=== PATIENT | female | born 1965 | race Asian ===

== ENCOUNTER 2021-03-24 17:40 | Inpatient (IN) | payer MEDICAID, SELFPAY ==
[~2021-03-24] VITALS: Ht 167.6 cm; Wt 55.3 kg
[2021-03-24 17:55] VITALS: BP_SYST 112
--- NOTE | 2021-03-24 18:00 | NUR ---
PT PLACED IN WAITING ROOM FOR BED AVAILABLILITY IN MAIN ED
--- NOTE | 2021-03-24 18:13 | NUR ---
PT BIB SON C/O EPIGASTRIC ABD PAIN X 1 WEEK WAS TOLD BY URGENT CARE TO GET X-RAY. TENDER TO TOUCH. TOOK SON'S AZITHROMYCIN AT HOME MADE WORSE. PT DENIES N/V/D. AMBULATORY, AAOX4, V/S STABLE
[2021-03-24 18:45] LABS: BILIRUBIN,URINE NEGATIVE (NEGATIVE); BLOOD, URINE NEGATIVE (NEGATIVE); CLARITY/URINE CLEAR (CLEAR); COLOR,URINE YELLOW (YELLOW); GLUCOSE,URINE NEGATIVE (NEGATIVE); KETONES,URINE NEGATIVE (NEGATIVE); LEUKOCYTE ESTERASE ,URINE TRACE (NEGATIVE); NITRITE, URINE NEGATIVE (NEGATIVE); PROTEIN URINE NEGATIVE (NEGATIVE); UROBILINOGEN,URINE 0.2 (0.2-1.0)
[2021-03-24 19:27] LABS: BACTERIA,URINE RARE /HPF (None Seen); RBC,URINE 0-3 /HPF (0-3); WBC,URINE 0-3 /HPF (0-3)
[2021-03-24 19:28] LABS: MUCUS,URINE None Seen /LPF (None Seen)
[2021-03-24 23:13] LABS: BASOPHILS % (AUTO) 1.2 % (0.0-2.0); EOSINOPHILS % (AUTO) 0.6 % (0.0-4.0); LYMPHOCYTES # (AUTO) 0.2 K/uL (1.0-5.5); MEAN CORPUSCULAR HEMOGLOBIN 68 pg (27-31); MEAN CORPUSCULAR HGB CONC 70 % (32-36); MEAN CORPUSCULAR VOLUME 97 fL (79.0-98.0); MONOCYTES # (AUTO) 0.2 K/uL (0.0-1.0); MONOCYTES % (AUTO) 8.6 % (1.7-9.3); NEUTROPHILS # (AUTO) 1.5 K/uL (1.8-7.7); NEUTROPHILS % (AUTO) 79.6 % (40.0-70.0); RED CELL DISTRIBUTION WIDTH 12.5 % (9.0-15.0)
[2021-03-24 23:17] LABS: ANION GAP 4 (5-15); CALCIUM 9.3 mg/dL (8.4-11.0); CHLORIDE 105 mmol/L (98-107); CREATININE 0.65 mg/dL (0.55-1.30); GLUCOSE 97 mg/dL (70-99); POTASSIUM 4.3 mmol/L (3.5-5.1); SODIUM SERUM 140 mmol/L (136-145); UREA NITROGEN, BLOOD 14 mg/dL (8-21)
[2021-03-24 23:25] LABS: ALANINE AMINOTRANSFERASE 21 U/L (12-78); ALBUMIN 3.9 g/dL (3.4-4.8); ASPARTATE AMINOTRANSFERASE 19 U/L (10-37); LIPASE 93 U/L (73-393); TOTAL BILIRUBIN 0.4 mg/dL (0.0-1.0)
--- NOTE | 2021-03-24 23:36 | NUR ---
DR. METCALF AT BEDSIDE FOR EVALUATION.
[2021-03-24] MEDS ORDERED: MORPHINE 2 MG/ML INJ. SYRINGE IVP ONE (23:45)
[2021-03-24] MEDS ORDERED: FAMOTIDINE PF 20 MG/2 ML VIAL IVP ONE (23:45)
[2021-03-24 23:46] LABS: GFR AFRICAN AMERICAN 121 mL/min (>90)
--- NOTE | 2021-03-24 23:56 | NUR ---
# 20 gauge angiocath placed to RIGHT AC Use of asceptic technique. Opsite placed over site. Blood return noted. Flushed with 10 cc of normal saline. No evidence of infiltration noted. Patient tolerated well.
[2021-03-25 00:07] LABS: RED BLOOD CELL COUNT(AUTO) 0.57 MIL/uL (4.2-6.2); WHITE BLOOD COUNT (AUTO) 1.9 K/uL (4.8-10.8)
[2021-03-25 00:08] LABS: HEMATOCRIT 5.5 % (36-48); HEMOGLOBIN 3.9 g/dL (12.0-16.0)
[2021-03-25 00:09] LABS: PLATELET COUNT (AUTO) 39 K/uL (130-430)
--- NOTE | 2021-03-25 02:12 | NUR ---
DR. METCALF AT BEDSIDE FOR RECTAL EXAM. HEMOCULT NEGATIVE.
--- NOTE | 2021-03-25 02:30 | NUR ---
COVID SWAB COLLECTED AND SENT TO LAB.
[2021-03-25] MEDS ORDERED: FERR236T3 PO (02:35)
[2021-03-25] MEDS ORDERED: MULT-1089 PO (02:35)
--- NOTE | 2021-03-25 02:35 | NUR ---
Medication reconciliation completed with information provided by SON. Any prior medication reconciliation on file was reviewed and corrected.
--- NOTE | 2021-03-25 03:24 | NUR ---
PENDING INSURANCE CONFIRMATION FOR ADMISSION. SON AT BEDSIDE. PT RESTING COMFORTABLY. VSS.
--- NOTE | 2021-03-25 05:00 | NUR ---
Consent signed per PATIENT agreeing to administration of blood. Blood has been type and crossmatched. Blood sent from blood bank. Information on unit of blood checked against patient wristband at bedside by two nurses. All information matches. Patient or responsible green party informed of potential complications associated with blood transfusion. Informed of possible transfusion reaction symptoms. Aware of need to notify nurse at once of itching, shortness of breath, flushing, feeling of impending doom, or other symptoms not previously present. Vital signs taken within 5 minutes prior to initiation of transfusion. RN will remain with patient for first 15 minutes of transfusion at which time vital signs will be re-assessed.
--- NOTE | 2021-03-25 05:17 | NUR ---
first 15 minutes of blood transfusion complete. pt tolerated well. no adverse effects noted. vss. Son at bedside.
--- NOTE | 2021-03-25 06:49 | NUR ---
blood transfusion completed. pt tolerated well. no adverse side effectes noted at this time. vss.
--- NOTE | 2021-03-25 07:14 | NUR ---
2ND BLOOD TRANSFUSION STARTED. Blood sent from blood bank. Information on unit of blood checked against patient wristband at bedside by two nurses. All information matches. Patient or responsible libertarian informed of potential complications associated with blood transfusion. Informed of possible transfusion reaction symptoms. Aware of need to notify nurse at once of itching, shortness of breath, flushing, feeling of impending doom, or other symptoms not previously present. Vital signs taken within 5 minutes prior to initiation of transfusion. RN will remain with patient for first 15 minutes of transfusion at which time vital signs will be re-assessed.
--- NOTE | 2021-03-25 07:21 | NUR ---
REPORT GIVEN TO FELIPE HAGER TO ASSUME ALL CARE OF PATIENT.
--- NOTE | 2021-03-25 07:37 | NUR ---
2ND UNIT PRBC INFUSING WITHOUT INCIDENT, GCS 15, DISTAL PULSES PALPAB[place], LUNGS CTA. SON AT [facility]
--- NOTE | 2021-03-25 08:58 | NUR ---
PRBC #2 REMAINS INFUSING WITHOUT INCIDENT. PT DENIES ANY COMPLAINTS
--- NOTE | 2021-03-25 10:30 | NUR ---
2ND UNIT OF PRBS INFUSED 300ML. SR ON MONITOR VSS UP OOB AMBULATED WITH STEADY GAIT TO BATHROOM. VOIVES NO COMPLAINTS
[2021-03-25 11:51] LABS: BASOPHILS % (AUTO) 0.4 % (0.0-2.0); EOSINOPHILS % (AUTO) 0.7 % (0.0-4.0); HEMOGLOBIN 14.1 g/dL (12.0-16.0); LYMPHOCYTES # (AUTO) 1.1 K/uL (1.0-5.5); MEAN CORPUSCULAR HEMOGLOBIN 32 pg (27-31); MEAN CORPUSCULAR HGB CONC 34 % (32-36); MEAN CORPUSCULAR VOLUME 96 fL (79.0-98.0); MONOCYTES # (AUTO) 0.7 K/uL (0.0-1.0); MONOCYTES % (AUTO) 10.9 % (1.7-9.3); NEUTROPHILS # (AUTO) 4.4 K/uL (1.8-7.7); PLATELET COUNT (AUTO) 226 K/uL (130-430); RED BLOOD CELL COUNT(AUTO) 4.39 MIL/uL (4.2-6.2); RED CELL DISTRIBUTION WIDTH 13.5 % (9.0-15.0); WHITE BLOOD COUNT (AUTO) 6.3 K/uL (4.8-10.8)
[2021-03-25] MEDS ORDERED: HYDROcodone/ACETAMIN 5-325 MG TAB (NORCO/ VICODIN) PO PRN (13:30)
[2021-03-25] MEDS ORDERED: ONDANSETRON HCL 4 MG/2 ML VIAL IVP PRN (13:30)
[2021-03-25] MEDS ORDERED: NALOXONE HCL 0.4 MG/ML AMP (NARCAN) IVP PRN ×2 (13:30)
[2021-03-25] MEDS ORDERED: ACETAMINOPHEN 325 MG TABLET PO PRN (13:30)
[2021-03-25] MEDS ORDERED: LORazepam 2 MG/ML VIAL IVP PRN (13:30)
[2021-03-25] MEDS: NORMAL SALINE 5 ML DISP.SYRIN IVF SCH ×4 (14:00→21:21)
--- NOTE | 2021-03-25 14:06 | NUR ---
REPORT CALLED TO NAVJOT IN MED SURG
--- NOTE | 2021-03-25 14:07 | NUR ---
Patient will be admitted to care of DR OLIVEIRA. Admitted to MED SURG unit. Will go to room 310-B. Belongings list completed. Complete and up to date summary report printed. SBAR report to be given at bedside with opportunity for questions.
--- NOTE | 2021-03-25 14:24 | NUR ---
CONSULTATION PAGED REASON FOR CONSULTATION ABDOMINAL PAIN WAS CONSULT CALED?Y PERSON WHO WAS NOTIFIED:GENE CONSULTING PHYSICIAN:DEMI AVERY WILLOW MACHINE TENDER SPECIALTY:GI WILLOW MACHINE TENDER PHONE NUMBER:[phone] REQUESTING PHYSICIAN:PARAG DOCKERY
[2021-03-25 14:25] VITALS: BP_SYST 114
--- NOTE | 2021-03-25 14:25 | NUR ---
Admit from ER Patient received onto Medical-Surgical unit; awake, alert, and oriented x 4. Speaks little Mauritanian. Primarily Urdu-speaking. Patient ambulatory without assist. Reports abdominal pain 12/03. Will administer pain medication per MD order. Call light in reach, bed in lowest position. Encouraged to call.
[2021-03-25] MEDS: HYDROcodone/ACETAMIN 10-325 MG TAB PO PRN (15:03)
[2021-03-25 16:00] VITALS: BP_SYST 125
--- NOTE | 2021-03-25 16:00 | NUR ---
Notes Patient lying in bed, pain is controlled at this time. No distress noted. Call light in reach and bed in lowest position. Encouraged to call.
--- NOTE | 2021-03-25 18:52 | NUR ---
Closing Note Patient awake and alert, lying in bed watching videos on phone. Pain is controlled at this time. No distress noted. Call light in reach and bed in lowest position. Will endorse to night nurse.
--- NOTE | 2021-03-25 19:25 | NUR ---
OPENING NOTES PATIENT RESTING, NO SIGNS OF DISTRESS NOTED. CALL LIGHT WITHIN REACH, PATIENT DEMONSTRATES PROPER USAGE OF CALL LIGHT, BED ALARM OFF PER PATIENT REQUEST, BED AT LOWEST POSITION, BED LOCKED. FALL, RESPIRATORY, ASPIRATION AND SAFETY PRECAUTIONS IN PLACE. WILL CONTINUE TO MONITOR.
[2021-03-25 20:00] VITALS: BP_SYST 114
[2021-03-25] MEDS ORDERED: DIATR MEGLU/DIATRIZ SOD 30 ML SOLUTION PO ONE (20:20)
--- NOTE | 2021-03-25 21:15 | NUR ---
PATIENT DRINKING CONTRAST AT THIS TIME. WILL CONTINUE TO MONITOR.
--- NOTE | 2021-03-25 23:00 | NUR ---
PATIENT RESTING, BACK FROM CT SCAN. NO SIGNS OF DISTRESS NOTED. SAFETY PRECAUTIONS IN PLACE. WILL CONTINUE TO MONITOR.
[2021-03-26 03:54] VITALS: BP_SYST 103
[2021-03-26] MEDS: NORMAL SALINE 5 ML DISP.SYRIN IVF SCH ×4 (06:00→22:38)
--- NOTE | 2021-03-26 07:26 | NUR ---
CLOSING NOTES PATIENT RESTING, NO SIGNS OF DISTRESS NOTED. HOB ELEVATED, CALL LIGHT WITHIN REACH, BED ALARM OFF PER PATIENT REQUEST, BED AT LOWEST POSITION, BED LOCKED. FALL, RESPIRATORY, ASPIRATION AND SAFETY PRECAUTIONS IN PLACE THROUGHOUT SHIFT. ALL NEEDS MET THROUGHOUT SHIFT. WILL ENDORSE CARE TO ONCOMING SHIFT.
[2021-03-26 08:18] LABS: BASOPHILS % (AUTO) 0.5 % (0.0-2.0); EOSINOPHILS # (AUTO) 0.1 K/uL (0.0-0.4); EOSINOPHILS % (AUTO) 1.8 % (0.0-4.0); HEMATOCRIT 41.9 % (36-48); HEMOGLOBIN 14.3 g/dL (12.0-16.0); LYMPHOCYTES # (AUTO) 1.2 K/uL (1.0-5.5); LYMPHOCYTES % (AUTO) 21.1 % (20.5-51.5); MEAN CORPUSCULAR HEMOGLOBIN 33 pg (27-31); MEAN CORPUSCULAR HGB CONC 34 % (32-36); MEAN CORPUSCULAR VOLUME 96 fL (79.0-98.0); MONOCYTES # (AUTO) 0.6 K/uL (0.0-1.0); MONOCYTES % (AUTO) 11.3 % (1.7-9.3); NEUTROPHILS # (AUTO) 3.7 K/uL (1.8-7.7); NEUTROPHILS % (AUTO) 65.3 % (40.0-70.0); PLATELET COUNT (AUTO) 233 K/uL (130-430); RED BLOOD CELL COUNT(AUTO) 4.38 MIL/uL (4.2-6.2); RED CELL DISTRIBUTION WIDTH 13.5 % (9.0-15.0); WHITE BLOOD COUNT (AUTO) 5.6 K/uL (4.8-10.8)
--- NOTE | 2021-03-26 08:45 | NUR ---
ASSUMPTION OF CARE: PATIENT RESTING, NO SIGNS OF DISTRESS NOTED. CALL LIGHT WITHIN REACH, PATIENT DEMONSTRATES PROPER USAGE OF CALL LIGHT, BED ALARM OFF PER PATIENT REQUEST, BED AT LOWEST POSITION, BED LOCKED. FALL, RESPIRATORY, ASPIRATION AND SAFETY PRECAUTIONS IN PLACE. WILL CONTINUE TO MONITOR.
[2021-03-26 09:05] VITALS: BP_SYST 120
[2021-03-26 09:48] LABS: CALCIUM 8.6 mg/dL (8.4-11.0); CREATININE 0.62 mg/dL (0.55-1.30); POTASSIUM 4.6 mmol/L (3.5-5.1)
[2021-03-26] MEDS: MULTIVITAMINS TAB 1 TABLET PO SCH (10:54)
[2021-03-26] MEDS: FERROUS GLUCONATE 324 MG TABLET PO SCH (10:58)
--- NOTE | 2021-03-26 15:45 | NUR ---
CM: faxed clinicals, fs and dc order if cleared by GI to [facility] # [phone].
[2021-03-26 16:00] VITALS: BP_SYST 127
--- NOTE | 2021-03-26 19:15 | NUR ---
OPENING NOTE PATIENT IN BED, AWAKE, WATCHING VIDEOS ON PHONE. BREATHING EVEN AND UNLABORED. IV SITE PATENT, NO SIGNS OF INFILTRATION OR INFECTION NOTED. CALL LIGHT WITH PATIENT. BED IS LOCKED AND AT LOWEST POSITION. WILL CONTINUE TO MONITOR.
[2021-03-26] MEDS: HYDROcodone/ACETAMIN 10-325 MG TAB PO PRN (19:58)
[2021-03-26 20:00] VITALS: BP_SYST 122
--- NOTE | 2021-03-26 20:28 | NUR ---
PAGED Dr. Leon [phone] s/w Ker[place] Addendum: 03/26/21 at 2058 by Coty Ramon RN 2nd page for Dr. Leon s/w Kandy
--- NOTE | 2021-03-26 21:00 | NUR ---
SPOKE TO DR WATSON MADE AWARE OF AB US RESULTS. ORDERED HIDA SCAN FOR AM. WILL CARRY OUT.
[2021-03-27] VITALS: BP_SYST 124
--- NOTE | 2021-03-27 | NUR ---
ROUNDS PATIENT IS IN BED, SLEEPING. CALL LIGHT WITHIN REACH. WILL CONTINUE TO MONITOR.
[2021-03-27] MEDS: NORMAL SALINE 5 ML DISP.SYRIN IVF SCH ×5 (06:00→22:49)
--- NOTE | 2021-03-27 06:43 | NUR ---
CLOSING NOTE PATIENT IN BED, NO S/S OF ACUTE DISTRESS. DENIES PAIN. BREATHING EVEN AND UNLABORED. IV SITE PATENT, NO SIGNS OF INFILTRATION OR INFECTION NOTED. ALL NEEDS MET THROUGHOUT SHIFT. FALL, SAFETY PRECAUTIONS MAINTAINED THROUGHOUT SHIFT. WILL CONTINUE TO MONITOR UNTIL PATIENT CARE IS ENDORSED TO ONCOMING DAYSHIFT NURSE.
[2021-03-27 08:00] VITALS: BP_SYST 120
--- NOTE | 2021-03-27 08:00 | NUR ---
0800: Received pt A+O x4, laying in bed sleeping at 0700. Pt c/o pain to epigastric abd area- see eMAR. IV S/L noted to R AC- patent. CSMW satisfactory. No headache, dizziness, chest pain, numbess or tingling, SOB/cough or edema. Lungs clear. RA 94%. BS x4. LBM Mar 26. voiding well, no skin concerns. IND with ADLs and mobility. VSS. Med accepting. Will continue to monitor.
[2021-03-27 08:35] LABS: BASOPHILS % (AUTO) 0.4 % (0.0-2.0); EOSINOPHILS # (AUTO) 0.1 K/uL (0.0-0.4); EOSINOPHILS % (AUTO) 2.1 % (0.0-4.0); HEMATOCRIT 43.3 % (36-48); HEMOGLOBIN 14.2 g/dL (12.0-16.0); LYMPHOCYTES % (AUTO) 22.2 % (20.5-51.5); MEAN CORPUSCULAR HEMOGLOBIN 32 pg (27-31); MEAN CORPUSCULAR HGB CONC 33 % (32-36); MEAN CORPUSCULAR VOLUME 96 fL (79.0-98.0); MONOCYTES # (AUTO) 0.6 K/uL (0.0-1.0); MONOCYTES % (AUTO) 12.5 % (1.7-9.3); NEUTROPHILS # (AUTO) 2.8 K/uL (1.8-7.7); NEUTROPHILS % (AUTO) 62.8 % (40.0-70.0); PLATELET COUNT (AUTO) 235 K/uL (130-430); RED BLOOD CELL COUNT(AUTO) 4.51 MIL/uL (4.2-6.2); RED CELL DISTRIBUTION WIDTH 13.3 % (9.0-15.0); WHITE BLOOD COUNT (AUTO) 4.4 K/uL (4.8-10.8)
[2021-03-27] MEDS: FERROUS GLUCONATE 324 MG TABLET PO SCH (09:26)
[2021-03-27] MEDS: MULTIVITAMINS TAB 1 TABLET PO SCH (09:26)
[2021-03-27 10:52] LABS: CALCIUM 8.9 mg/dL (8.4-11.0); CREATININE 0.4 mg/dL (0.55-1.30); POTASSIUM 4.5 mmol/L (3.5-5.1); TOTAL BILIRUBIN 0.4 mg/dL (0.0-1.0)
[2021-03-27 10:53] LABS: ALBUMIN 3.3 g/dL (3.4-4.8)
[2021-03-27 11:37] VITALS: BP_SYST 114
[2021-03-27 12:20] VITALS: BP_SYST 114
--- NOTE | 2021-03-27 14:00 | NUR ---
Pt left floor for HIDA scan.
--- NOTE | 2021-03-27 15:30 | NUR ---
Pt returned from HIDA scan
[2021-03-27 16:21] VITALS: BP_SYST 138
--- NOTE | 2021-03-27 16:25 | NUR ---
Dr. Echols called/paged to discuss patients HIDA scan results to see what plan is. Awaiting callback
--- NOTE | 2021-03-27 17:40 | NUR ---
Dr. Echols called- plan to keep pt NPO at midnight tonight for EGD tomorrow.
--- NOTE | 2021-03-27 17:56 | NUR ---
Pt sitting on side of bed eating C.L diet, to be NPO tonight at midnight for EGD tomorrow- pt aware. No voiced concerns. Will continue to monitor.
[2021-03-27 20:10] VITALS: BP_SYST 116
--- NOTE | 2021-03-27 22:38 | NUR ---
Received call from MD Dr. Rao called and received order to transfer pt to a contracted hospital. Informed pt, pt verbalized understanding. Cancel EGD, will do procedure at the other hospital.
--- NOTE | 2021-03-27 22:48 | NUR ---
Received call from [facility] Spoke with Kim requesting Covid test result to be faxed at [phone]. Pt awaiting bed at [facility] under Dr. Major.
--- NOTE | 2021-03-27 23:16 | NUR ---
Faxed covid rapid result to Kim from [facility].
[2021-03-28 00:02] VITALS: BP_SYST 107
--- NOTE | 2021-03-28 00:55 | NUR ---
Called [facility], spoke to Tez. ETA [id number]
--- NOTE | 2021-03-28 01:48 | NUR ---
Report to [facility] Report given to FELIPE Montague. Pt to go to 302-B. [facility] to fern picker at 0230.
--- NOTE | 2021-03-28 02:42 | NUR ---
Transfer Patient Patient transfer to [facility] Room 302-B. Paperwork w/ [facility] transport. NPO since midnight. Patient in stable condition, ID band removed. IV catheter R.AC 20G, intact and patent. All belongings sent with patient.
== END 2021-03-28 02:42 | disposition short-term general hospital (02) | DRG 532 ==
LOC: SED 17:40 → SMU 03-25 11:18
PROVIDERS: ADMIT Preventive Medicine Preventive Medicine/Occupational Environmental Medicine; ATTEND Preventive Medicine Preventive Medicine/Occupational Environmental Medicine
PROC: 30233N1 Transfusion of Nonautologous Red Blood Cells into Peripheral Vein, Percutaneous Approach (ICD-10-PCS; principal; 2021-03-25)
DX: D25.9 Leiomyoma of uterus, unspecified (principal); D61.818 Other pancytopenia; D69.6 Thrombocytopenia, unspecified; E88.09 Other disorders of plasma-protein metabolism, not elsewhere classified; D64.9 Anemia, unspecified; Z20.822 Contact with and (suspected) exposure to COVID-19
CPT/HCPCS: 36415; 36430; 72191; 74175; 76376; 76700-TC; 76830-TC; 76857; 78226; 80048; 80053; 81000; 83690; 84484; 85025; 86886; 86900; 86901; 86920; 87086; 93005; 96374; 96375; 99285; A9537; J2270; J3490; P9021; Q9964; Q9967